=== PATIENT | female | born 1965 | race Caucasian/White ===

== ENCOUNTER 2016-08-27 08:25 | Emergency (ER) | payer MEDICAID | END 2016-08-27 09:12 | disposition home or self-care (01) | LOC: D.ER 08:25 | DX: S40.262A Insect bite (nonvenomous) of left shoulder, initial encounter (principal); W57.XXXA Bitten or stung by nonvenomous insect and other nonvenomous arthropods, initial encounter; Y93.89 Activity, other specified; Y92.89 Other specified places as the place of occurrence of the external cause; L03.114 Cellulitis of left upper limb; F17.200 Nicotine dependence, unspecified, uncomplicated ==